=== PATIENT | male | born 1955 | race Caucasian/White ===

== ENCOUNTER → 2017-01-26 | Outpatient (CLI) | payer BC ==
--- NOTE | 2017-01-27 11:31 | DI ---
COMPLETE MYELOGRAM, 01/26/2017 10:56 AM: Clinical History: Cervical, thoracic, and lumbar spondylosis with radiculopathy. Previous Exam: None at this facility. A "time out" session verified the patient's name and date of . Informed signed consent was then obtained for this procedure. The patient was informed of benefits and risks, to include but not be li mited to: allergies to medications (skin preparation agents, local anesthetic, and contrast agent), i nfection, and "spinal" headaches. The lower back was prepped with ChloraPrep with Tint. 1% lidocaine without epinephrine was used for intradermal and subcutaneous local anesthesia. With fluoroscopy, a 2 2 gauge spinal needle introduced into the spinal canal from the left L4 paraspinal approach. with a s vni pass that revealed droplets of clear colorless CSF. 10 ml of Omipaque 300 was injected into the spinal canal with fluoroscopic monitoring. Spot films of the spine were obtained and the patient was transferred to the CT scan suite for the CT myelogram. Following the CT scan, the patient was observed in the department for approximately 1 hour. 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 The patient was also instructed to push fluids for the remainder of the day and to sleep on an extra pillow with the head up if possible. The patient was advised to watch for signs of an infection (including but not limited to: redness, swelling, fever) or an unusually severe headache. The yanet t was instructed to either contact the x-ray department directly or to report to the Emergency Room i mmediately if problems arose. CERVICAL MYELOGRAM: This portion of the examination could not be performed because the patient had difficulty breathing i n the prone position and could not tolerate this position when the head was tilted down to facilitate collection of contrast in the cervical region. Evaluation of this area is deferred to the CT cervica l myelogram study. THORACIC MYELOGRAM: The thoracic cord is normal in appearance. There is no intradural extramedullary lesion. There are no nerve root sleeve amputation is identified from T5 inferiorly. T3-4 through T7-8 have very mild ante rior extradural defects consistent with minimally bulging but not herniated discs. T8-9 through T10-1 1 disc spaces are normal. T11-12 has an anterior extradural defect consistent with a bulging but not herniated disc. The T12-L1 disc space is normal. LUMBAR MYELOGRAM: L1-2 has an anterior extradural defect consistent with a bulging disc. L2-3 disc space is normal. L3- 4 through L5-S1 disc spaces have anterior extradural defects without nerve root sleeve amputation is consistent with bulging but not herniated discs. The spinal canal stenosis is noted. Readin. No disc herniations or spinal canal stenosis is seen in the thoracic or lumbar regions. The thora cic cord is normal and there is no intradural extramedullary lesion. 2. There are bulging discs at T3-4 through T7-8 and that T11-12. The T8-9 through T10-11 and T12-L1 disc spaces are normal. 3. The L1-2 and at L3-4 through L5-S1 disc spaces have bulging discs. The L2-3 disc space is normal.
--- NOTE | 2017-01-27 13:23 | DI ---
CT CERVICAL SPINE SCAN WITH INTRATHECAL CONTRAST, 01/26/2017 9:52 AM : Clinical History: Cervical spondylosis with radiculopathy. Previous Exam: None at this facility. Scans are performed from the mid body of T3 to the base of the skull with intrathecal contrast. Sagit marquise and coronal reformatted images are generated. Curved coronal reformatted images and axial reforma tted images angled through the disc spaces are also performed. The patient is status post anterior fusions at C4-5 and C5-6 and both fusions are solid. There is sev ere disc space narrowing at C2-3, C3-4, and C7-T1 through T2-3. Posterior alignment is normal. C1 art iculates normally with C2 and the occiput. Degenerative arthritic changes are present bilaterally in the zygapophyseal joints at C3-4, C7-T1, and on the right apophyseal joint at T1-2. Prevertebral soft tissue planes are normal. There is a central bulging but not herniated disc at C2-3 without canal or neural foraminal stenosis. C3-4 has a central bulging but not herniated disc without canal stenosis. There is mild bilateral ne ural foraminal stenosis. C4-5 shows no canal or right neural foraminal stenosis. There is left neural foraminal stenosis. C5-6 shows no canal or neural foraminal stenosis. C6-7 has a minimally bulging d isc without canal stenosis. There is bilateral neural foraminal stenosis, more severe on the left marzena e than the right. C7-T1 through T2-3 disc spaces show no canal or neural foraminal stenosis. READIN. Status post anterior fusions at C4-5 and C5-6 and the fusions are solid. There is no canal stenos is at either level but there is bilateral C5-6 neural foraminal stenosis, more severe on the left marzena e than the right. There is no C4-5 neural foraminal stenosis. 2. C3-4 and C6-7 have bulging disc without canal or neural foraminal stenosis. 3. Degenerative arthritic changes are noted in the zygapophyseal joints bilaterally at C3-4 and at C 7-T1. There is right apophyseal joint arthritic change at T1-2.
--- NOTE | 2017-01-27 13:34 | DI ---
CT THORACIC SPINE SCAN WITH INTRATHECAL CONTRAST, 01/26/2017 9:52 AM : Clinical History: Thoracic spondylosis with radiculopathy. Previous Exam: None at this facility. Scans are obtained from C6-7 to L1 to with intrathecal contrast. Sagittal and coronal reformatted emmie ges are generated.Curved coronal reformatted images and axial reformatted images angled through the d isc spaces are also performed. There is mild anterior wedging of T11 probably related to an old compression fracture. The remaining thoracic vertebral bodies are of normal height. There is disc space narrowing at T7-8. The remaining disc spaces are of normal height. There are no acute fractures. Posterior alignment and posterior aileen ments are normal. Pedicles are normal. Paravertebral soft tissue planes are normal. The thoracic cord is normal and there is no evidence of an intradural extramedullary lesion. The C7-T 1 through T6-7 disc spaces show only very mild bulging but not herniated discs without canal or neura l foraminal stenosis. The disc spaces from T7-8 through T10-11 are normal. T11-12 has a bulging but n ot herniated disc without canal or neural foraminal stenosis. The T12-L1 disc space is normal. READIN. There is anterior wedging of T11 probably representing an old compression fracture. The thoracic cord is normal and there is no intradural extramedullary lesion. 2. There are bulging but not herniated discs without canal or neural foraminal stenosis from C7-T1 t hrough T6-7 and T11-12. 3. The disc spaces from T7-8 through T10-11 and at T12-L1 are normal.
--- NOTE | 2017-01-27 14:03 | DI ---
CT LUMBAR SPINE SCAN WITH INTRATHECAL CONTRAST, 01/26/2017 9:52 AM : Clinical History: Lumbar spondylosis with radiculopathy. Previous Exam: None at this facility. Scans are obtained from the T11-12 disc space to S4. without IV contrast. Sagittal and coronal reform atted images are generated. Curved coronal reformatted images and axial reformatted images angled thr ough the disc spaces are also performed. The vertebral bodies are of normal height and size. There is severe disc space narrowing at L1-2 and L3-4 with mild to moderate narrowing at L2-3 and L4-5. There are no fractures. Posterior alignment an d posterior elements are normal. Pedicles are normal. The sacrum and SI joints are normal. The cord terminates at T12. There is a bulging but not herniated disc without canal or neural foramin al stenosis at T11-12. The T12-L1 disc space is normal. L1-2 has a circumferentially bulging but not herniated disc without canal or neural foraminal stenosis. L2-3 disc space is normal. L3-4 has a circ umferentially bulging but not herniated disc without canal or neural foraminal stenosis. L4-5 has a c ircumferentially bulging but not herniated disc with hypertrophic changes of the apophyseal joints an d ligamentum flavum producing spinal canal stenosis. There is no neural foraminal stenosis. L5-S1 has a focal left anterolateral disc herniation that may cause impingement of the left S1 nerve root befo re it enters into the lateral recess of S1. There is no canal or neural foraminal stenosis. READIN. There is spinal canal stenosis at L4-5 secondary to a bulging but not herniated disc and hypertro phic changes of the apophyseal joints and ligamentum flavum. There is no neural foraminal stenosis. 2. Left anterolateral small focal disc herniation at L5-S1 and this disc may cause impingement of th e left S1 nerve root before it enters into the lateral recess of S1. There is no canal or neural fora el stenosis. 3. There are bulging but not herniated discs at L1-2 and L3-4 without canal or neural foraminal sten osis. 4. T12-L1 and L2-3 disc spaces are normal.
== END ==
LOC: CT 09:22
PROVIDERS: ATTEND Neurological Surgery
DX: M47.27 Other spondylosis with radiculopathy, lumbosacral region (principal); M47.24 Other spondylosis with radiculopathy, thoracic region; M47.22 Other spondylosis with radiculopathy, cervical region; M48.06 Spinal stenosis, lumbar region; Z98.1 Arthrodesis status
CPT/HCPCS: 72126; 72129; 72132; 72240; 72255; 72265

== ENCOUNTER → 2017-03-23 | Outpatient (CLI) | payer BC ==
--- NOTE | 2017-03-23 13:26 | DI ---
XR C-SPINE 2-3 VW,03/23/2017 12:42 PM: Clinical History: Spinal fusion Previous Exam: CT cervical spine performed January 26, 2017 Findings: 3 views of the cervical spine are obtained, and demonstrate fusion of C4-T1. The prevertebral soft tissues are unremarkable. There is also anterior fusion of C6-T1. Impression: Status post multilevel fusion of the cervical spine with new fusion of the cervicothoracic junction s risa the prior exam.
== END ==
LOC: RAD 12:33
PROVIDERS: ATTEND Neurological Surgery
DX: Z48.811 Encounter for surgical aftercare following surgery on the nervous system (principal); Z98.1 Arthrodesis status
CPT/HCPCS: 72040

== ENCOUNTER 2019-02-11 15:07 | Observation (INO) ==
[2019-02-11] MEDS ORDERED: LIDOCAINE W/ SODIUM BICARB 0.5 ML SYR SUBD PRN (15:10)
[2019-02-11] MEDS ORDERED: ONDANSETRON 4 MG/2 ML VIAL IVP PRN (15:10)
[2019-02-11] MEDS ORDERED: GABAPENTIN 100 MG CAPSULE PO ONE (16:21)
[2019-02-11] MEDS ORDERED: VERAPAMIL HCL 40 MG PO SCH (16:30)
[2019-02-11] MEDS ORDERED: ASPIRIN 325 MG TABLET PO ONE (16:31)
[2019-02-11] MEDS: HYDROmorphone 2 MG/1 ML IVP PRN ×2 (16:41→20:00)
--- NOTE | 2019-02-11 16:41 | PDOC ---
HPI - History of Present Illness Date of Service: 02/11/19 Time of Service: 16:35 Chief Complaint: Back pain History of Present Illness: 3 pleasant 63-year-old male with coronary artery disease status post CABG and subsequent stent after myocardial infarction, hypertension, and chronic cervical and lumbar pains, with recent PLIF done, and this was done about a week ago. The patient states that postoperatively, he developed fevers that resolved 3 days ago and he was told he had a "collapsed lung" but no chest tube was placed so I think it could've been atelectasis. The patient also states that his pain was very difficult to control. He had had sciatica down his right leg and numbness in his left great toe and he states that those symptoms seemed to resolve, but they were replaced by a severe postoperative pain. Percocet and hydrocodone has not helped. The patient states that he has taken prednisone in the past and he feels that he could take that, but he was told not to take any anti-inflammatories from both his seconds grader and neurosurgeon, and he does not believe he is supposed to take tramadol due to potential of seizures. He states that during his CABG there was some sort of complication with one of the grafts and that it could potentially not work based on his medications. He does not currently complain of substernal chest pains. He states that his back pain has been radiating to his hips bilaterally and he describes the pain is very intense, 9/10 intensity, unrelenting, and described it as almost a wrong nerve type pain. I spoke with Dr. Skelton, and he recommended that we try steroids and Lyrica or Neurontin. I also spoke to the patient's surgeon, Dr. Mathew who was fine with resuming antiplatelet therapy. I spoke with the patient's seconds grader, Dr. Belle, who had recommended that he resume at least one antiplatelet as soon as possible to reduce risk of any potential cardiac injury in the setting of the surgery. Past Medical History Medical History: 1. Coronary artery disease status post CABG and subsequent myocardial infarction. Stent was placed in July 2017. 2. Hypertension. 3. Chronic low back pain. 4. Chronic cervical pain. Surgical History: 1. Neck surgeries. 2. Low back surgery. 3. 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 Tobacco Use: Never Smoker In the Past 12 Months, Have Used or Abuse Any of the Following Substance: None Alcohol Use: None Medication / Allergies Home Medications: Home Medications Medication Instructions Recorded Confirmed Fluticasone Propionate [Flonase 2 spr TANO PRN spr 01/25/17 Allergy Relief] Simvastatin 1 tab PO DAILY tab 01/25/17 Valsartan [Diovan] 80 mg PO TID tab 01/25/17 Verapamil HCl 40 mg PO 5XD tab 01/25/17 clopidogrel 75 mg tablet PO QDAY tab 09/18/17 09/18/17 hydrocodone 7.5 mg-acetaminophen 1 tab PO Q4-6H PRN #60 tab 02/12/18 02/12/18 325 mg tablet gabapentin 300 mg capsule 300 mg PO BID #90 cap 02/11/19 methylprednisolone 4 mg tablets in 4 mg PO PER PKG DIR #21 tab 02/11/19 a dose pack Allergies/Adverse Reactions: Allergies Allergy/AdvReac Type Severity Reaction Status Date / Time penicillinase Allergy Severe eye shut Verified 09/18/17 13:09 anna Allergy Intermediate hives Unverified 09/18/17 13:09 Penicillins Allergy Intermediate Unverified 09/18/17 13:09 honey dew ricardo AdvReac Intermediate hive Uncoded 09/18/17 13:09 Review of Systems - Review of Systems All Systems: Reviewed & No Additional Complaints Except as Stated (I did a 12 point review systems and it was negative other than that discussed below and in the history of present illness.) - Constitutional Constitutional: REPORTS: Diffuse Arthralgias (right ankle ligaments torn.) - Respiratory Respiratory: REPORTS: Negative System Review - Cardiovascular Cardiovascular: REPORTS: Negative System Review - Gastrointestinal Gastrointestinal / Abdominal: REPORTS: Negative System Review - Genitourinary Genitourinary: REPORTS: Negative System Review - Musculoskeletal Musculoskeletal: REPORTS: Other (ankle pain, right side.) - Neurological Neurologic: REPORTS: Headache Exam - Vitals Vital Signs: Vital Signs Temperature 97.3 F Temperature Source Temporal Artery Scan Pulse Rate [Pulse Oximeter] 75 Respiratory Rate 17 Blood Pressure [Right Arm] 154/79 Pulse Ox 97 Oxygen Delivery Method Room Air - General General Appearance: No Acute Distress, Cooperative - Head Head Exam: Normal Inspection, Normocephalic, Atraumatic - Eye Eye Exam: POSITIVE: No Scleral Icterus - ENT ENT Exam: POSITIVE: Mucous Membranes Moist - Neck Neck Exam: Normal Inspection, No Tenderness, No Lymphadenopathy, No Thyromegaly, JVP is not Raised - Respiratory Respiratory Exam: POSITIVE: Clear to Auscultation - Bilaterally, Breathing Non Labored - Cardiovascular Cardiovascular Exam: POSITIVE: RRR, No Murmur, No Clicks, No Gallops, No Rubs, No JVD - GI/Abdominal GI/Abdominal Exam: POSITIVE: Normal Bowel Sounds, Non Tender, Non Distended, Soft - Rectal Rectal Exam: POSITIVE: Deferred - External Exam: POSITIVE: Deferred Exam: POSITIVE: Deferred - Extremities Extremities Exam: POSITIVE: No Clubbing Present, No Edema Present, No Cyanosis Present Additional Extremities Exam Details: Right ankle has a brace in place. - Neurological Neurological Exam: POSITIVE: Alert, Oriented x 3, No Facial Droop, Speech Intact / Clear, Moves All Extremities Equally - Psychiatric Psychiatric Exam: POSITIVE: Anxious Results - Labs Additional Lab Results: I have ordered a conference metabolic panel, CBC with differential, sedimentation rate and CRP. Assessment and Plan - Patient Problems (1) Acute postoperative pain Current Visit: Yes Status: Acute Code(s): G89.18 - Other acute postprocedural pain (2) Status post lumbar surgery Current Visit: Yes Status: Acute Code(s): Z98.890 - Other specified postprocedural states (3) Coronary artery disease Current Visit: Yes Status: Acute Code(s): I25.10 - Atherosclerotic heart disease of [place] coronary artery without angina pectoris Qualifiers: Coronary Disease-Associated Artery/Lesion type: bypass graft [place] vs. transplanted heart: [place] heart Associated angina: without angina Qualified Code(s): I25.810 - Atherosclerosis of coronary artery bypass graft(s) without angina pectoris (4) Hypertension Current Visit: Yes Status: Acute Code(s): I10 - Essential (primary) hypertension Qualifiers: Hypertension type: essential hypertension Qualified Code(s): I10 - Essential (primary) hypertension (5) Hypercholesterolemia Current Visit: Yes Status: Acute Code(s): E78.00 - Pure hypercholesterolemia, unspecified - Assessment / Plan Additional Assessment/Plan Details: Admit patient. Will try Solu-Medrol, Neurontin, and Dilaudid as necessary for pain. PT and OT. Wear brace at all times. Ice packs to back as necessary. We will try to get MRI scan tomorrow to look for potential seroma although I don't think so after inspecting the wound. The wound, on my evaluation, is clean, dry, intact stapled, and shows no evidence of any bulging and no evidence of any infection. Resume dual antiplatelet therapy. I spoke with both the patient's seconds grader and his neurosurgeon and they are both okay without resuming. Resume patient's antihypertensives. The difficult thing here will be to transition to a by mouth medication to control pain. He states hydrocodone and Percocet have not really helped. May need to just try oxycodone. Could also consider trying trazodone or amitriptyline if necessary. Full code. Discussed with patient and his and they agree to proceed.
[2019-02-11 16:43] LABS: Hematocrit [HCT] 32.5 % (42.0-52.0); Hemoglobin [HGB] 11.1 g/dL (14.0-18.0); MEAN CORPUSCULAR HEMOGLOBIN 32.5 PG (27-31); MEAN CORPUSCULAR HGB CONC 34.2 g/dL (33-37); MEAN PLATELET VOLUME 11.5 FL (7.4-12.2); RED BLOOD COUNT 3.42 10^6/uL (4.70-6.10)
[2019-02-11] MEDS: methylPREDNISolone 40 MG/1 ML VIAL IVP SCH ×2 (16:46→22:24)
[2019-02-11] MEDS: CLOPIDOGREL 75 MG TABLET PO SCH (17:02)
[2019-02-11 17:05] LABS: BAND NEUTROPHILS % 0 % (0-10); BASOPHILS % (MANUAL) 2 % (0-1); EOSINOPHILS % (MANUAL) 2 % (0-8); MONOCYTES % (MANUAL) 6 % (0-12); NEUTROPHILS % (MANUAL) 64 % (50-80); PLATELET MORPHOLOGY COMMENT NORMAL MORPHOLOGY (NORM); RBC MORPHOLOGY COMMENT NORMAL MORPHOLOGY (NORM); WBC MORPHOLOGY COMMENT NORMAL MORPHOLOGY (NORM)
[2019-02-11 17:10] LABS: Erythrocyte Sediment Rate 56 MM/HR (0-15)
[2019-02-11 17:43] VITALS: RESP 20
--- NOTE | 2019-02-11 18:31 | DI ---
XR CXR 1VW,02/11/2019 4:23 PM: Clinical History: Atelectasis Previous Exam: None at this facility. Findings: A single frontal radiograph of the chest is obtained, and demonstrates clear lungs. The cardiomediast inum and bony thorax are unremarkable. Sternotomy wires are seen. Patient is status post anterior spinal fusion of the cervical thoracic junction. There is no infiltrate nor effusion. There is no evidence of pneumothorax. Impression: No acute cardiopulmonary disease.
[2019-02-11 19:41] LABS: BLOOD UREA NITROGEN 12 mg/dL (7-22); BUN/CREATININE RATIO 13.33 (6-20); SERUM ALBUMIN 3.7 g/dL (3.5-4.8)
[2019-02-11] MEDS: GABAPENTIN 100 MG CAPSULE PO SCH (20:03)
[2019-02-11] MEDS: VALSARTAN 80 MG PO SCH (20:50)
[2019-02-11] MEDS ORDERED: Simvastatin Tab 20 MG TAB PO SCH (21:00)
[2019-02-12] MEDS: HYDROmorphone 2 MG/1 ML IVP PRN ×2 (00:48→09:29)
[2019-02-12] MEDS: methylPREDNISolone 40 MG/1 ML VIAL IVP SCH ×2 (04:22→11:34)
[2019-02-12 04:31] VITALS: O2SAT 95
[2019-02-12] MEDS ORDERED: ASPIRIN 325 MG TABLET PO SCH (09:00)
[2019-02-12] MEDS ORDERED: DIAZEPAM 10 MG/2 ML (5 MG/1 ML) CARPUJECT IVP ONE ×2 (09:04)
[2019-02-12 09:16] VITALS: BP 134/80; TEMP 98
[2019-02-12] MEDS: GABAPENTIN 100 MG CAPSULE PO SCH (09:28)
[2019-02-12] MEDS: CLOPIDOGREL 75 MG TABLET PO SCH (09:28)
[2019-02-12] MEDS: VALSARTAN 80 MG PO SCH (09:47)
[2019-02-12] MEDS ORDERED: HYDROmorphone 2 MG TABLET PO PRN (10:47)
--- NOTE | 2019-02-12 11:10 | DCSUMMARY ---
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 On his way home, he had an acute exacerbation of back pain, and was admitted for further evaluation and management. See admission history and physical exam done yesterday. We placed the patient on Dilaudid IV, Solu-Medrol, and Neurontin, and his pain significantly improved. He stated this morning it was a 1 out of 10. He got to as high as a 3 out of 10 and he stated that he had the best sleep he said in 6 or 7 days. He states to me that he feels that he could go home. He feels like ice packs did help him. He denies any chest pain or shortness of breath. We devised a plan to transition to by mouth Dilaudid as necessary. I provided him with a prescription for 60 tablets with no refill. I explained on discharge retractions at the hospital service does not do refills of these medications. We also will taper steroids, and start with prednisone which has worked for the patient in the past with these kinds of pain episodes. We have also written a prescription for 1 months of Neurontin at 100 mg 3 times a day for nerve pain. Interestingly, this morning, the patient told me he did not feel any radiating pain into his hips or down his legs this morning. Assessment and Plan: 1. As per discharge assessments noted 2. Disposition: Patient will be discharged home. 3. Condition on discharge, stable and improved. 4. Diet: regular diet 5. Activities: resume activities as per neurosurgery instructions and restrictions 6. Follow-Up: 1. Primary physician within 7 days of discharge 2. Neurosurgery by February 21 or as instructed by Dr. Mathew. Patient states he may follow with DR. Skelton here. 7. Medications at the Time of Discharge: Home Medications Medication Instructions Recorded Confirmed Fluticasone Propionate [Flonase 2 spr TANO PRN spr 01/25/17 Allergy Relief] Simvastatin 1 tab PO DAILY tab 01/25/17 Valsartan [Diovan] 80 mg PO TID tab 01/25/17 clopidogrel 75 mg tablet PO QDAY tab 09/18/17 09/18/17 Aspirin 325 mg PO DAILY #120 tab 02/12/19 Gabapentin [Neurontin] 100 mg PO TID #90 cap 02/12/19 HYDROmorphone Tab [Dilaudid Tab] 2 - 4 mg PO Q6H PRN #60 tab 02/12/19 predniSONE Tab [Deltasone Tab] 10 mg PO DAILY #30 tab 02/12/19 This is an observation discharge Exam - Vitals Vital Signs: Vital Signs Temperature 98 F Temperature Source Temporal Artery Scan Pulse Rate [Pulse Oximeter] 72 Respiratory Rate 20 Blood Pressure [Left Arm] 141/79 Blood Pressure [Right Arm] 134/80 Pulse Ox 95 Oxygen Delivery Method Room Air Height 6 ft 2 in Weight 209 lb 12.8 oz - General General Appearance: No Acute Distress, Cooperative - Head Head Exam: Normal Inspection, Normocephalic, Atraumatic - Eye Eye Exam: POSITIVE: No Scleral Icterus - ENT ENT Exam: POSITIVE: Mucous Membranes Moist - Neck Neck Exam: JVP is not Raised - Respiratory Respiratory Exam: POSITIVE: Clear to Auscultation - Bilaterally, Breathing Non Labored - Cardiovascular Cardiovascular Exam: POSITIVE: RRR, No Murmur, No Clicks, No Gallops, No Rubs, No JVD - GI/Abdominal GI/Abdominal Exam: POSITIVE: Normal Bowel Sounds, Non Tender, Non Distended, Soft - Extremities Extremities Exam: POSITIVE: No Clubbing Present, No Edema Present, No Cyanosis Present - Back Additional Back Exam Details: Incision is dressed, and incision is clean, dry, intact. No bulging and no erythema. - Neurological Neurological Exam: POSITIVE: Alert, Oriented x 3, No Facial Droop, Speech Intact / Clear, Moves All Extremities Equally - Psychiatric Psychiatric Exam: POSITIVE: Normal Affect, Normal Mood Data Peritnent Studies: Laboratory Results 02/11/19 02/11/19 16:41 16:41 WBC 7.51 RBC 3.42 L Hgb 11.1 L Hct 32.5 L MCV 95.0 H MCH 32.5 H MCHC 34.2 RDW Std Deviation 42.5 RDW Coeff of Yanely 12.8 Plt Count 305 MPV 11.5 Neutrophils % (Manual) 64 Band Neutrophils % 0 Lymphocytes % (Manual) 26 Monocytes % (Manual) 6 Eosinophils % (Manual) 2 Basophils % (Manual) 2 H Metamyelocytes % Not Reportable Myelocytes % Not Reportable Promyelocytes % Not Reportable Blast Cells Not Reportable WBC Morphology Comment Normal morphology Plt Morphology Comment Normal morphology RBC Morph Comment Normal morphology ESR 56 H Sodium 144 Potassium 4.2 Chloride 105 Carbon Dioxide 22 L Anion Gap 17 BUN 12 Creatinine 0.9 Estimated GFR > 60 BUN/Creatinine Ratio 13.33 Glucose 135 H Calculated Osmolality 299.0 H Calcium 8.6 L Total Bilirubin 0.2 L AST 30 ALT 33 Alkaline Phosphatase 80 C-Reactive Protein 4.9 H Total Protein 6.3 Albumin 3.7 Globulin 2.6 Albumin/Globulin Ratio 1.40 I think the sedimentation rate is Elevated in the setting of surgery. Patient Problems - Patient Problem List (1) Acute postoperative pain Current Visit: Yes Status: Resolved Code(s): G89.18 - Other acute postprocedural pain Category: Medical (2) Status post lumbar surgery Current Visit: Yes Status: Acute Code(s): Z98.890 - Other specified postprocedural states Category: Surgical (3) Coronary artery disease Current Visit: Yes Status: Acute Code(s): I25.10 - Atherosclerotic heart disease of [place] coronary artery without angina pectoris Qualifiers: Coronary Disease-Associated Artery/Lesion type: bypass graft [place] vs. transplanted heart: [place] heart Associated angina: without angina Qualified Code(s): I25.810 - Atherosclerosis of coronary artery bypass graft(s) without angina pectoris Category: Medical (4) Hypertension Current Visit: Yes Status: Acute Code(s): I10 - Essential (primary) hypertension Qualifiers: Hypertension type: essential hypertension Qualified Code(s): I10 - Essent ial (primary) hypertension Category: Medical (5) Hypercholesterolemia Current Visit: Yes Status: Acute Code(s): E78.00 - Pure hypercholesterolemia, unspecified Category: Medical
--- NOTE | 2019-02-12 11:23 | PT.PROG ---
Progress Note Progress Note: per nursing pt is to be going home soon no PT eval necessary at this time.
== END 2019-02-12 13:51 | disposition home or self-care (01) ==
LOC: MED/SURG
PROVIDERS: ADMIT Family Medicine; ATTEND Family Medicine